=== PATIENT | female | born 1965 | race Caucasian/White ===

== ENCOUNTER 2016-10-16 18:56 | Emergency (ER) | payer BC ==
--- NOTE | 2016-10-16 18:57 | ER Document Report ---
ED Medical Screen (RME) - General Stated Complaint: CONGESTION Time seen by provider: 18:57 Mode of Arrival: Ambulatory Information source: Parent Notes: 51-year-old smoker female with upper respiratory infection for a week and has congestion in her head and her chest. She is asking for breathing treatment. She does not have any metered-dose inhalers or nebulizers at home. Had a fever all week. TRAVEL OUTSIDE OF THE [place] IN LAST 30 DAYS: No - Related Data Allergies/Adverse Reactions: No Known Allergies Allergy (Verified 06/08/14 22:14) Past Medical History - Past Medical History Cardiac Medical History: Reports: Hx Hypertension Past Surgical History: Reports: Hx Oral Surgery, Hx Tubal Ligation - Immunizations Hx Diphtheria, Pertussis, Tetanus Vaccination: Yes - 2009 Physical Exam - Vital signs Vitals: Temp Pulse Resp BP Pulse Ox 98.5 F 63 20 146/65 H 99 10/16/16 19:00 10/16/16 19:00 10/16/16 19:00 10/16/16 19:00 10/16/16 19:00 Course - Vital Signs Vital signs: Temp Pulse Resp BP Pulse Ox 98.5 F 63 20 146/65 H 99 10/16/16 19:00 10/16/16 19:00 10/16/16 19:00 10/16/16 19:00 10/16/16 19:00
[2016-10-16] MEDS ORDERED: PREDNISONE 20 MG TABLET PO ONE (19:04)
[2016-10-16] MEDS ORDERED: IPRATROPIUM/ALBUTEROL 0.5-2.5 MG/3 ML AMPUL NEB ONE (19:04)
[2016-10-16] MEDS ORDERED: ALBUTEROL SULFATE 0.083% NEB 2.5 MG/3 ML AMPUL NEB ONE ×2 (19:33→20:01)
--- NOTE | 2016-10-16 19:40 | ER Document Report ---
ED Respiratory Problem - General Mode of Arrival: Ambulatory Information source: Patient TRAVEL OUTSIDE OF THE [place] IN LAST 30 DAYS: No - HPI Patient complains to provider of: Cough Onset: Other - 7 days ago Context: Smoker Associated symptoms: Other - see above - General Chief Complaint: Cold Symptoms Stated Complaint: CONGESTION Notes: 51 year old female with no prior medical problems presents to the ED complaining of a cough and cold-like symptoms that have been present for the past 7 days. Patient states that her cough has been non-productive until yesterday when she began coughing up some sputum. Patient is additionally complaining of a fever, chills, loss of appetite, and bilateral ear pain. Patient states that she is a less than 1 pack per day smoker, but explains that she has been "too sick to smoke." Patient denies getting the flu shot. Patient does not have a primary care provider. Patient is not on any medications. (CHARLENE GUTIERREZ) - Related Data Allergies/Adverse Reactions: No Known Allergies Allergy (Verified 06/08/14 22:14) Past Medical History - General Information source: Parent - Social History Smoking Status: Current Every Day Smoker Cigarette use (# per day): Yes - <1 pack per day Family History: Reviewed & Not Pertinent - Past Medical History Cardiac Medical History: Reports: Hx Hypertension Renal/ Medical History: Denies: Hx Peritoneal Dialysis Past Surgical History: Reports: Hx Oral Surgery, Hx Tubal Ligation - Immunizations Hx Diphtheria, Pertussis, Tetanus Vaccination: Yes - 2009 Review of Systems - Review of Systems Constitutional: See HPI, Chills, Fever EENT: See HPI, Eye pain - bilateral, Nose congestion Cardiovascular: No symptoms reported Respiratory: See HPI, Cough Gastrointestinal: See HPI, Poor appetite Genitourinary: No symptoms reported Female Genitourinary: No symptoms reported Musculoskeletal: No symptoms reported Skin: No symptoms reported Hematologic/Lymphatic: No symptoms reported Neurological/Psychological: No symptoms reported -: Yes All other systems reviewed and negative Physical Exam - General General appearance: Alert In distress: None - HEENT Head: Normocephalic, Atraumatic Eyes: Normal Extraocular movements intact: Yes Pupils: PERRL Ears: Normal External canal: Normal Tympanic membrane: Retracted - Minor bilateral retractions. No: Normal Pharynx: Erythema. No: Normal Neck: Normal - Respiratory Respiratory status: No respiratory distress Breath sounds: Rhonchi - bilaterally, Wheezing - bilaterally - Cardiovascular Rhythm: Regular Heart sounds: Normal auscultation - Abdominal Inspection: Normal - Back Back: Normal - Extremities General upper extremity: Normal inspection, Normal ROM General lower extremity: Normal inspection, Normal ROM - Neurological Neuro grossly intact: Yes - Psychological Associated symptoms: Normal affect, Normal mood - Skin Skin Temperature: Warm Skin Moisture: Dry Skin Color: Normal - Vital signs Vitals: Temp Pulse Resp BP Pulse Ox 98.5 F 63 20 146/65 H 99 10/16/16 19:00 10/16/16 19:00 10/16/16 19:00 10/16/16 19:00 10/16/16 19:00 (KATHERINE SCOTT) (CHARLENE GUTIERREZ) Discharge - Discharge Clinical Impression: Viral URI with cough, Acute bronchitis with bronchospasm Condition: Stable Disposition: HOME, SELF-CARE Additional Instructions: Urinary Tract Infection: Your evaluation indicates that you have a urinary tract infection. This is due to germs growing in the bladder. This is a common problem. This infection usually responds quickly to antibiotics. Your antibiotic should be taken exactly as prescribed. Drink plenty of fluids -- three to four quarts a day. Occasionally, a bladder anesthetic will be prescribed to help stop the feeling of urgency until the antibiotic has a chance to clear the infection. This may cause your urine to be dark orange. Certain urine infections require a culture. If the doctor obtained a culture, the results will be back in two days. You should call to see if a change in treatment is needed. A repeat urinalysis after you finish treatment is often recommended. The physician will let you know if further testing is required. Call the doctor if you develop fever, chills, flank pain, inability to urinate, or blood in the urine. Bronchitis with Bronchospasm (Wheezing): You have bronchitis with bronchospasm (wheezing). Sometimes people develop wheezing with a chest cold. This occurs either because of an underlying tendency toward asthma or because the virus itself irritates the bronchial tubes. This irritation causes cough, shortness of breath, and wheezing. Emergency treatment of bronchospasm may include adrenaline shots or bronchodilator aerosol. You may feel lightheaded and have a rapid pulse for an hour or two. Rest and get plenty of fluids. At home, we'll treat you with a bronchodilator inhaler. Corticosteroids may be required for some patients. Until you recover, avoid chemical fumes, dusts, pollens, and exercising in very cold or dry air. If you smoke, stop now! Most cases of bronchitis get better without antibiotics. We prescribe antibiotics when we believe bacteria are damaging your airways, or if there's high risk the bronchitis will worsen into pneumonia. Increase your fluid intake. A cool mist humidifier may make your lungs more comfortable. An expectorant (cough medicine that loosens phlegm) can help. Repeated episodes of bronchitis and bronchospasm may result in lung damage -- for example, chronic bronchitis, recurrent pneumonias, or emphysema. If you develop a fever, increased wheezing, chest pain, or severe shortness of breath, you should contact the doctor immediately. USE THE INHALER 2 PUFFS EVERY 4 HOURS FOR WHEEZING NEEDED. DRINK PLENTY OF FLUIDS. START THE PREDNISONE TUESDAY(tomorrow). TRY ROBITUSSIN-DM FOR COUGH. REST. STOP SMOKING. FOLLOW UP WITH A LOCAL MEDICAL DOCTOR IF NOT IMPROVING. RETURN TO THE EMERGENCY ROOM IF ANY NEW OR WORSENING SYMPTOMS. Prescriptions: Albuterol Sulfate [Proair HFA] 1 - 2 puff IH Q4 PRN #1 inhaler PRN Reason: Prednisone [Deltasone 10 mg Tablet] 10 mg PO ASDIR PRN #21 tablet PRN Reason: Forms: Return to Work Scribe Attestation: 10/16/16 20:12 I personally performed the services described in the documentation, reviewed and edited the documentation which was dictated to the scribe in my presence, and it accurately records my words and actions. (KATHERINE SOCTT) Scribe Documentation - Scribe Written by Diane:: Diane Garcia, [id number] acting as scribe for :: Fritz
[2016-10-16] MEDS ORDERED: ALBUTEROL SULFATE HFA (90 MCG/PUFF) 8 GM MDI (1 MDI/ER DISP) IH ONE (20:11)
[2016-10-16 20:58] VITALS: BP 141/62
== END 2016-10-16 20:53 | disposition home or self-care (01) ==
LOC: ER 18:56
DX: J20.9 Acute bronchitis, unspecified (principal); J06.9 Acute upper respiratory infection, unspecified; R50.9 Fever, unspecified; H92.03 Otalgia, bilateral; F17.210 Nicotine dependence, cigarettes, uncomplicated; I10 Essential (primary) hypertension; Z98.51 Tubal ligation status
CPT/HCPCS: 99283; 71020; J7512; J3490; J7620

== ENCOUNTER 2018-07-13 20:56 | Emergency (ER) | payer SELFPAY ==
--- NOTE | 2018-07-13 22:34 | ER Document Report ---
ED General - General Chief Complaint: Jaw Pain Stated Complaint: LEFT SIDE JAW PAIN Time Seen by Provider: 07/13/18 21:07 Notes: Patient is a 53-year-old female without chronic medical problems who presents with swelling to the left side of her face that started while she was eating dinner. She states the swelling has since improved. Nothing seems to cause the swelling to resolve but states that it did start while she was eating. She states that when it was present it felt like a mild fullness but was not truly painful. She denies any history of similar symptoms in the past. She has not seen her primary care doctor regarding today's concerns. No difficulty breathing or swallowing. No facial numbness or weakness. No headache or neck pain. TRAVEL OUTSIDE OF THE [place] IN LAST 30 DAYS: No - Related Data Allergies/Adverse Reactions: No Known Allergies Allergy (Verified 06/08/14 22:14) Past Medical History - General Information source: Patient - Social History Smoking Status: Never Smoker Frequency of alcohol use: None Drug Abuse: None Lives with: Spouse/Significant other Family History: Reviewed & Not Pertinent Patient has suicidal ideation: No Patient has homicidal ideation: No - Past Medical History Cardiac Medical History: Reports: Hx Hypertension Renal/ Medical History: Denies: Hx Peritoneal Dialysis Past Surgical History: Reports: Hx Oral Surgery, Hx Tubal Ligation - Immunizations Hx Diphtheria, Pertussis, Tetanus Vaccination: Yes - 2009 Review of Systems - Review of Systems Notes: Constitutional: Negative for fever. HENT: Positive for left facial swelling now resolved Eyes: Negative for visual changes. Cardiovascular: Negative for chest pain. Respiratory: Negative for shortness of breath. Gastrointestinal: Negative for abdominal pain, vomiting or diarrhea. Genitourinary: Negative for dysuria. Musculoskeletal: Negative for back pain. Skin: Negative for rash. Neurological: Negative for headaches, weakness or numbness. 10 point ROS negative except as marked above and in HPI. Physical Exam - Vital signs Vitals: Temp Pulse Resp BP Pulse Ox 98.1 F 75 16 171/80 H 97 07/13/18 21:02 07/13/18 21:02 07/13/18 21:02 07/13/18 21:02 07/13/18 21:02 Interpretation: Hypertensive Notes: PHYSICAL EXAMINATION: GENERAL: Well-appearing, well-nourished and in no acute distress. HEAD: Atraumatic, normocephalic. EYES: Pupils equal round and reactive to light, extraocular movements intact, sclera anicteric, conjunctiva are normal. ENT: nares patent, oropharynx clear without exudates. Moist mucous membranes. Mild swelling over the left parotid gland but no tenderness to palpation. NECK: Normal range of motion, supple without lymphadenopathy LUNGS: Breath sounds clear to auscultation bilaterally and equal. No wheezes rales or rhonchi. HEART: Regular rate and rhythm without murmurs ABDOMEN: Soft, nontender, normoactive bowel sounds. No guarding, no rebound. No masses appreciated. EXTREMITIES: Normal range of motion, no pitting or edema. No cyanosis. NEUROLOGICAL: No focal neurological deficits. Moves all extremities spontaneously and on command. PSYCH: Normal mood, normal affect. SKIN: Warm, Dry, normal turgor, no rashes or lesions noted. Course - Re-evaluation Re-evalutation: 07/13/18 22:32 Presentation is most consistent with left-sided parotid sialadenitis this patient had swelling of the parotid gland while eating and has now resolved. There is mild swelling of the parotid gland although no induration or fluctuance to suggest an underlying infection or abscess. The patient is otherwise extremely well in appearance. Currently denies any symptoms of any kind. No evidence of a facial droop or neurologic deficit. There is no chest pain or discomfort, no radiation of the pain of the jaw to suggest an ACS picture. No indication for labs or imaging. I recommended lemon drops or similar sour candy and outpatient follow-up. At this time will discharge with return precautions and follow-up recommendations. Verbal discharge instructions given a the bedside and opportunity for questions given. Medication warnings reviewed. Patient is in agreement with this plan and has verbalized understanding of return precautions and the need for primary care follow-up in the next 24-72 hours. - Vital Signs Vital signs: Temp Pulse Resp BP Pulse Ox 98.1 F 73 26 H 159/88 H 99 07/13/18 21:02 07/13/18 22:52 07/13/18 22:52 07/13/18 22:52 07/13/18 22:52 Discharge - Discharge Clinical Impression: Acute sialoadenitis Condition: Good Disposition: HOME, SELF-CARE Additional Instructions: Your symptoms are likely due to a blockage of your salivary gland and should resolve over the next several days. Sucking on sour candy such as lemon drops can be helpful. You may also take ibuprofen 600 mg every 6 hours as needed for swelling and discomfort. You may also apply heat to the area. Return if you develop fever, worsening pain or swelling, difficulty swallowing, difficulty breathing, or any other symptoms that are worrisome to you. Please follow-up with your primary care doctor within the next 24-48 hours.
[2018-07-13 22:56] VITALS: BP 159/88
--- NOTE | 2018-07-14 07:22 | EKG REPORT ---
SEVERITY:- BORDERLINE ECG - SINUS RHYTHM BORDERLINE T ABNORMALITIES, ANTERIOR LEADS : Confirmed by: Brodie Castillo MD 14-Jul-2018 07:21:50
== END 2018-07-13 22:54 | disposition home or self-care (01) ==
LOC: ER 20:56
DX: K11.21 Acute sialoadenitis (principal); R68.84 Jaw pain; I10 Essential (primary) hypertension
CPT/HCPCS: 93005; 93010; 99283

== ENCOUNTER 2019-01-19 08:21 | Emergency (ER) | payer SELFPAY ==
--- NOTE | 2019-01-19 09:03 | ER Document Report ---
ED Medical Screen (RME) - General Chief Complaint: Sinus Pain Stated Complaint: SINUS PAIN Time Seen by Provider: 01/19/19 09:00 Mode of Arrival: Ambulatory Information source: Patient Notes: 53-year-old female presented to ED for complaint of swelling to the left side of her face up to around her left eye down to her left jaw. She states that she thought at first it was a dental abscess and was using salt water gargles and clove oil but now the pain is up in her face and her sinuses. She states she bent over yesterday and splinted a large plug of something with blood in it. She states the pain is now sharp and throbbing 3/5. 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 She does smoke a pack a day. I have greeted and performed a rapid initial assessment of this patient. A comprehensive ED assessment and evaluation of the patient, analysis of test results and completion of medical decision making process will be conducted by an additional ED providers. Dictation of this chart was performed using voice recognition software; therefore, there may be some unintended grammatical errors. TRAVEL OUTSIDE OF THE [place] IN LAST 30 DAYS: No - Related Data Allergies/Adverse Reactions: No Known Allergies Allergy (Verified 01/19/19 08:22) Past Medical History - Past Medical History Cardiac Medical History: Reports: Hx Hypertension Renal/ Medical History: Denies: Hx Peritoneal Dialysis Past Surgical History: Reports: Hx Oral Surgery, Hx Tubal Ligation - Immunizations Hx Diphtheria, Pertussis, Tetanus Vaccination: Yes - 2009 Physical Exam - Vital signs Vitals: Temp Pulse Resp BP Pulse Ox 98.4 F 75 16 186/72 H 98 01/19/19 08:28 01/19/19 08:28 01/19/19 08:28 01/19/19 08:28 01/19/19 08:28 Course - Vital Signs Vital signs: Temp Pulse Resp BP Pulse Ox 98.4 F 75 16 186/72 H 98 01/19/19 08:28 01/19/19 08:28 01/19/19 08:28 01/19/19 08:28 01/19/19 08:28
[2019-01-19] MEDS ORDERED: KETOROLAC TROMETHAMINE INJ/PF 30 MG/1 ML SDV IV ONE (09:05)
[2019-01-19] MEDS ORDERED: METHYLPREDNISOLONE INJ 125 MG/2 ML SDV IV ONE (09:47)
[2019-01-19] MEDS ORDERED: CLINDAMYCIN 900 MG/D5W RTU 900 MG/50 ML RTUPB IV ONE (09:47)
--- NOTE | 2019-01-19 10:00 | ER Document Report ---
ED General - General Chief Complaint: Sinus Pain Stated Complaint: SINUS PAIN Time Seen by Provider: 01/19/19 09:00 Mode of Arrival: Ambulatory Notes: 53-year-old female presented to ED for complaint of swelling to the left side of her face up to around her left eye down to her left jaw. She states that she thought at first it was a dental abscess and was using salt water gargles and clove oil but now the pain is up in her face and her sinuses. She states she bent over yesterday and splinted a large plug of something with blood in it. She states the pain is now sharp and throbbing 3/5. The patient stated she felt something drained last night that was pus and blood she was spitting up she thought was from her sinuses. Denies fever chills. TRAVEL OUTSIDE OF THE [place] IN LAST 30 DAYS: No - Related Data Allergies/Adverse Reactions: No Known Allergies Allergy (Verified 01/19/19 08:22) Past Medical History - General Information source: Patient - Social History Smoking Status: Unknown if Ever Smoked Family History: Reviewed & Not Pertinent - Past Medical History Cardiac Medical History: Reports: Hx Hypertension Renal/ Medical History: Denies: Hx Peritoneal Dialysis Past Surgical History: Reports: Hx Oral Surgery, Hx Tubal Ligation - Immunizations Hx Diphtheria, Pertussis, Tetanus Vaccination: Yes - 2009 Review of Systems - Review of Systems Constitutional: denies: Chills, Fever EENT: Nose congestion, Nose discharge, Sinus pressure, Sinus discharge, Mouth pain, Dental problem. denies: Throat pain, Throat swelling Cardiovascular: denies: Chest pain, Dyspnea Respiratory: denies: Short of breath, Sputum Gastrointestinal: denies: Abdominal pain, Diarrhea, Nausea, Vomiting Skin: denies: Rash Neurological/Psychological: denies: Headaches -: Yes All other systems reviewed and negative Physical Exam - Vital signs Vitals: Temp Pulse Resp BP Pulse Ox 98.4 F 75 16 186/72 H 98 01/19/19 08:28 01/19/19 08:28 01/19/19 08:28 01/19/19 08:28 01/19/19 08:28 - Notes Notes: GENERAL_APPEARANCE: well_nourished, alert, cooperative, appears uncomfortable VITALS: reviewed, see vital signs table. HEAD: Left facial swelling more so on the left cheek EYES: PERRL, EOMI, conjunctiva_clear. NOSE: Turbinate inflammation some tenderness in the left maxillary sinus MOUTH: (-)decreased moisture. Throat very poor dentition some tenderness in the left upper jaw no obvious dental abscess THROAT: no_tonsilar_inflammation, no_airway_obstruction. no_lymphadenopathy NECK: supple, no_neck_tenderness, (-)thyromegaly. BACK: no_back_tenderness. CHEST_WALL: no_chest_tenderness. LUNGS: no_wheezing, no_rales, no_rhonchi, (-)accessory muscle use, good air exchange bilateral. HEART: normal_rate, normal_rhythm, normal_S1, normal_S2, (-)S3, (-)S4, no_murmur, no_rub. SKIN: warm, dry, good_color, no_rash. MENTAL_STATUS: speech_clear, oriented_X_3, normal_affect, responds_appropriately to questions. NEURO: Neg Motor or Sensory Deficits on exam, CN 2-12 intact, DTR 2+ symmetric x 4, No cerbellar signs Course - Re-evaluation Re-evalutation: 01/19/19 10:00 Patient has noticeable left facial swelling. This is either dental abscess or sinus issue. We will get a CT of the face with contrast to assess for abscess we will give the patient some steroids and IV antibiotics. The patient has no drooling or stridor I am able to see the uvula there is no airway compromise. 01/19/19 11:54 CT scan shows a dental abscess that looks to have drained. We will continue the patient on clindamycin the patient received IV clindamycin here. Patient will be given referral to oral surgery. Have patient follow-up with her dentist and oral surgeon. Otherwise patient is doing well with no airway compromise. - Vital Signs Vital signs: Temp Pulse Resp BP Pulse Ox 98.4 F 75 16 186/72 H 98 01/19/19 08:28 01/19/19 08:28 01/19/19 08:28 01/19/19 08:28 01/19/19 08:28 - Laboratory Result Diagrams: 01/19/19 10:00 01/19/19 10:00 Laboratory results interpreted by me: 01/19/19 01/19/19 10:00 10:00 WBC 16.3 H Absolute Neutrophils 12.6 H Chloride 108 H Glucose 144 H - Diagnostic Test Radiology reviewed: Reports reviewed Radiology results interpreted by me: 01/19/19 11:[address] 01/19/19 09:47 IMPRESSION: 1. It appears that a dental abscess has perforated the cortex of the bone and there is now a small, subcentimeter sized soft tissue abscess adjacent to the left maxilla. 2. There is left maxillary sinus disease. Discharge - Discharge Clinical Impression: Dental abscess Condition: Good Disposition: HOME, SELF-CARE Instructions: Dental Infection or Abscess ([facility]) Prescriptions: Clindamycin HCl 300 mg PO QID #30 capsule Referrals: [facility] [Provider Group] - Follow up as needed
[2019-01-19 10:14] LABS: ABSOLUTE BASOPHILS # (AUTO) 0.1 10^3/uL (0.0-0.2); ABSOLUTE LYMPHOCYTES (AUTO) 2.5 10^3/uL (0.5-4.7); ABSOLUTE MONOCYTES (AUTO) 1.1 10^3/uL (0.1-1.4); ABSOLUTE NEUT (AUTO) 12.6 10^3/uL (1.7-8.2); BASOPHILS % (AUTO) 0.8 % (0-2); EOSINOPHILS % (AUTO) 0.2 % (0-6); HEMATOCRIT 41.3 % (36.0-47.0); HEMOGLOBIN 13.8 g/dL (12.0-15.5); LYMPHOCYTES % (AUTO) 15.3 % (13-45); MEAN CORPUSCULAR HEMOGLOBIN 28.2 pg (27.0-33.4); MEAN CORPUSCULAR HGB CONC 33.4 g/dL (32.0-36.0); MEAN CORPUSCULAR VOLUME 84 fl (80-97); MONOCYTES % (AUTO) 6.5 % (3-13); PLATELET COUNT 345 10^3/uL (150-450); RED BLOOD COUNT 4.89 10^6/uL (3.72-5.28); RED CELL DISTRIBUTION WIDTH 13.8 % (11.5-14.0); SEGMENTED NEUTROPHILS % (AUTO) 77.2 % (42-78); TOTAL CELLS COUNTED % (AUTO) 100 %; WHITE BLOOD COUNT 16.3 10^3/uL (4.0-10.5)
[2019-01-19 10:35] LABS: ALANINE AMINOTRANSFERASE 28 U/L (9-52); ALBUMIN 4.3 g/dL (3.5-5.0); ALKALINE PHOSPHATASE 109 U/L (38-126); ANION GAP 10 (5-19); ASPARTATE AMINO TRANSFERASE 16 U/L (14-36); BILIRUBIN,DIRECT 0.2 mg/dL (0.0-0.4); BILIRUBIN,TOTAL 0.4 mg/dL (0.2-1.3); BLOOD UREA NITROGEN 7 mg/dL (7-20); CALCIUM 9.8 mg/dL (8.4-10.2); CARBON DIOXIDE 25 mmol/L (22-30); CHLORIDE 108 mmol/L (98-107); GLUCOSE 144 mg/dL (75-110); POTASSIUM 3.7 mmol/L (3.6-5.0); SODIUM 142.6 mmol/L (137-145); TOTAL PROTEIN 7.8 g/dL (6.3-8.2)
--- NOTE | 2019-01-19 11:20 | RADIOLOGY REPORT (SQ) ---
EXAM DESCRIPTION: CT FACIAL AREA WITH COMPLETED DATE/TIME: 01/19/2019 11:06 am REASON FOR STUDY: left face swelling abscess COMPARISON: None TECHNIQUE: Post contrast images through the facial bones and orbits windowed for bone and soft tissu e. Additional coronal and sagittal reconstructed images reviewed. All images stored on PACS. All CT scanners at this facility use dose modulation, iterative reconstruction, and/or weight based d osing when appropriate to reduce radiation dose to as low as reasonably achievable (ALARA). [facility]: Dose Right [facility]: CareDose [facility]: Dose Right [facility]: Teradose 4D [facility]: Datam CONTRAST TYPE AND DOSE: contrast/concentration: Isovue 350.00 mg/ml; Total Contrast Delivered: 50.0 ml; Total Saline Delivered: 50.0 ml RENAL FUNCTION: BUN 7 creatinine 0.53 RADIATION DOSE: CT Rad equipment meets quality standard of care and radiation dose reduction techniq ues were employed. CTDIvol: 30.4 mGy. DLP: 579 mGy-cm. . LIMITATIONS: None. FINDINGS: FACIAL BONES: No fracture or bone lesion. ORBITS: Intact. No fracture. Symmetric intact globes and retroorbital soft tissues. PARANASAL SINUSES: There is mucoperiosteal thickening in the left maxillary sinus. No nasal polyps. M axillary sinus outlets are patent. SOFT TISSUES: There is soft tissue swelling adjacent to the left maxilla on the buccal side. There i s a small fluid collection seen on image 31 series 3. A small bubble of air is seen on image 34 seri es 3. There is a small defect in the bone cortex. INFERIOR BRAIN: Limited view. No acute findings. OTHER: No other significant finding. IMPRESSION: 1. It appears that a dental abscess has perforated the cortex of the bone and there is now a small, subcentimeter sized soft tissue abscess adjacent to the left maxilla. 2. There is left maxillary sinus disease. TECHNICAL DOCUMENTATION: JOB ID: [id number] Quality ID # [id number]: Final reports with documentation of one or more dose reduction techniques (e.g., Au tomated exposure control, adjustment of the mA and/or kV according to patient size, use of iterative reconstruction technique) 2010 [employer]- All Rights Reserved Reading location - IP/workstation name: [email or web address]
[2019-01-19 12:20] VITALS: BP 164/67
== END 2019-01-19 12:21 | disposition home or self-care (01) ==
LOC: ER 08:21
DX: K04.7 Periapical abscess without sinus (principal); R51 Headache; R09.81 Nasal congestion; I10 Essential (primary) hypertension; Z98.51 Tubal ligation status
CPT/HCPCS: 99284; 96375; 96365; 96366; 36415; 85025; 80053; 70487; J3490; J2930; J1885